=== PATIENT | male | born 1975 | race Caucasian/White ===

== ENCOUNTER 2017-08-01 13:35 | Emergency (ER) | payer OTHER ==
[~2017-08-01] VITALS: Ht 182.8 cm; Wt 117.9 kg
[2017-08-01] MEDS ORDERED: GABAPENTIN600 MG PO (13:44)
[2017-08-01] MEDS ORDERED: SEROQUEL400 M1 PO ×2 (13:45→13:48)
[2017-08-01] MEDS ORDERED: ZOLOFT50 MG PO (13:45)
[2017-08-01] MEDS ORDERED: ZESTRIL10 MG PO (13:45)
[2017-08-01] MEDS ORDERED: Motrin,Rufen800 MG PO (13:48)
[2017-08-01] MEDS ORDERED: AMOXICILLIN500 M2 PO (13:48)
[2017-08-01] MEDS ORDERED: FLONASE ALLERG9.9 ML NS (13:48)
== END 2017-08-01 14:10 | disposition home or self-care (01) ==
LOC: ED 13:35
DX: K04.7 Periapical abscess without sinus (principal); Z76.0 Encounter for issue of repeat prescription; Z79.899 Other long term (current) drug therapy

== ENCOUNTER 2017-10-06 11:58 | Emergency (ER) | payer OTHER ==
[~2017-10-06] VITALS: Ht 182.8 cm; Wt 106.6 kg
[~2017-10-06 11:58] MED LIST: AMOXICILLIN500 M2 PO; FLONASE ALLERG9.9 ML NS; GABAPENTIN600 MG PO; Motrin,Rufen800 MG PO; SEROQUEL400 M1 PO; ZESTRIL10 MG PO; ZOLOFT50 MG PO
[2017-10-06 12:28] LABS: BILIRUBIN NEGATIVE (NEGATIVE); BLOOD TRACE-INTACT (NEGATIVE); CLARITY SL CLOUDY (CLEAR); COLOR YELLOW (YELLOW); GLUCOSE NEGATIVE (NEGATIVE); KETONE TRACE (NEGATIVE); LEUKO ESTERASE NEGATIVE (NEGATIVE); NITRITE NEGATIVE (NEGATIVE); PH 5.5 (5.0-9.0)
[2017-10-06 12:29] LABS: BASO # 0.1 10*3/uL (0.0-0.1); BASO % 1.5 % (0.0-1.0); EOS # 0.1 10*3/uL (0.0-0.4); EOS % 0.8 % (1.0-4.0); HEMATOCRIT 44.6 % (42.0-52.0); HEMOGLOBIN 15.5 g/dl (14.0-18.0); LYMPH # 1.9 10*3/uL (1.3-4.4); LYMPH % 30.8 % (27.0-41.0); MEAN CELL VOLUME 88.1 fl (80.0-94.0); MEAN CORPUSCULAR HGB 30.6 pg (27.0-31.0); MEAN CORPUSCULAR HGB CONC 34.8 g/dl (33.0-37.0); MEAN PLATELET VOLUME 9.2 fl (9.6-12.3); MONO # 0.5 10*3/uL (0.1-1.0); MONO % 7.5 % (3.0-9.0); NEUT # 3.6 10*3/uL (2.3-7.9); NEUT % 59.2 % (47.0-73.0); PLATELET COUNT AUTOMATED 321 10*3/uL (130-400); RED BLOOD COUNT 5.06 10*6/uL (4.50-5.90); RED CELL DISTRI WIDTH 13.3 % (0-14.5); WHITE BLOOD COUNT 6.1 10*3/uL (4.8-10.8)
[2017-10-06 12:36] LABS: URINE AMPHETAMINES < 1000 (1000ng/ml); URINE BARBITURATES < 200 (200ng/ml); URINE BENZODIAZEPINES < 200 (200ng/ml); URINE CANNABINOIDS (THC) > 50 (50ng/ml); URINE COCAINE < 300 (300ng/ml); URINE METHADONE < 300 (300ng/ml); URINE OPIATES < 300 (300ng/ml)
[2017-10-06 12:37] LABS: URINE PHENCYCLIDINE < 25 (25ng/ml)
[2017-10-06 12:39] LABS: ALBUMIN 4.7 gm/dl (3.1-4.5); ALKALINE PHOSPHATASE 107 U/L (45-117); BUN 9 mg/dl (7-24); CHLORIDE 99 mmol/L (98-107); CREATININE 1.12 mg/dL (0.70-1.30); POTASSIUM 3.2 mmol/L (3.5-5.1); SGOT/AST 83 IU/L (3-35); SGPT/ALT 68 U/L (12-78); SODIUM 136 mmol/L (136-145); TOTAL PROTEIN 8.6 gm/dL (6.4-8.2)
[2017-10-06 12:55] LABS: BACTERIA 1+; MUCOUS 1+
[2017-10-06 12:56] LABS: FINE GRANULAR CAST TNTC
[2017-10-06] MEDS ORDERED: SEROQUEL400 M1 PO (13:41)
== END 2017-10-06 14:36 | disposition home or self-care (01) ==
LOC: ED 11:58
PROVIDERS: Nurse Practitioner Family
DX: F41.9 Anxiety disorder, unspecified (principal); F10.129 Alcohol abuse with intoxication, unspecified; R03.0 Elevated blood-pressure reading, without diagnosis of hypertension; M79.1 Myalgia; R11.0 Nausea; R25.1 Tremor, unspecified; Z76.0 Encounter for issue of repeat prescription; F17.200 Nicotine dependence, unspecified, uncomplicated; Z79.899 Other long term (current) drug therapy

== ENCOUNTER 2017-10-07 21:41 | Inpatient (IN) | payer OTHER ==
[~2017-10-07] VITALS: Ht 182.9 cm; Wt 98.5 kg
--- NOTE | ~2017-10-07 | CON ---
[place], [place] REPORT OF CONSULTATION NAME: CHRISTINA ZELAYA UNIT #: [id number] ROOM: [facility] DOCTOR: SOFI TOLLIVER MD BIRTHDATE: [birth year] DOS: 10/08/2017 REASON FOR CONSULTATION: Acute kidney injury. HISTORY OF PRESENT ILLNESS: A 41-year-old male with past history of alcohol abuse, hypertension, posttraumatic stress disorder. He was brought to the hospital, seems yesterday. He was confused and disoriented. He is having nausea and vomiting, muscle cramps, abdominal pain and back pain. Apparently, found at the gas station by staff acting strange. They called the police and he was strongly confused and brought to the hospital. The patient was felt to be intoxicated. Apparently, he was in the Emergency Room a day before for alcohol intoxication, muscle spasms, nausea, anxiety to being out of the Seroquel for a few days. He was prescribed Seroquel and sent home. At that time, his creatinine was 1.1. When he returned back to the hospital, his creatinine was over 5. He was highly intoxicated and admitted for further evaluation. He was started on IV fluids. A CK level was drawn and was over 4000. The patient did have some improvement in his creatinine with today's levels. He is urinating without difficulty. When I had seen him, he was on nasal cannula. He seems to be going into withdrawal symptoms. He has been given a number of doses of Ativan and is on a steady dose of Ativan as well. He, otherwise, is a poor historian. ALLERGIES: No known drug allergies. HOME MEDICATIONS: Included gabapentin, lisinopril, Seroquel, Zoloft. CURRENT MEDICATIONS: Reviewed on the chart. PAST MEDICAL HISTORY: 1. Hypertension. 2. Post-traumatic stress disorder. 3. Alcohol abuse. 4. History of hernia repair. 5. Depression. 6. Questionable chronic pain. FAMILY HISTORY: No reported history of chronic kidney disease, otherwise noncontributory. SOCIAL HISTORY: He has an extensive history of alcohol abuse. He does smoke and there is a history of illicit drugs. REVIEW OF SYSTEMS: As per HPI, otherwise, a 10-point review of systems was reviewed and was negative or somewhat limited. PHYSICAL EXAMINATION: VITAL SIGNS: Temperature 97.9, pulse 82, respiration rate 16, blood pressure 129/89. GENERAL: He is awake, alert, somewhat agitated. HEENT: Shows no JVD. Sclerae are anicteric. Mucous membranes appear dry. [place], [place] REPORT OF CONSULTATION NAME: CHRISTINA ZELAYA UNIT #: [id number] ROOM: [facility] DOCTOR: SOFI TOLLIVER MD BIRTHDATE: [birth year] Pharynx is clear. NECK: Supple. Trachea is midline. There is no neck lymphadenopathy or thyromegaly. LUNGS: Diminished breath sounds. There are no appreciable wheezes. No tactile fremitus. He is not using accessory muscles of respiration. HEART: S1, S2. No rub, thrill or gallop. ABDOMEN: Soft, nontender. There is organomegaly or rigidity, rebound or guarding. There is no CVA tenderness. EXTREMITIES: No edema. There is no lower extremity lymphadenopathy. Distal pulses are 2+. SKIN: Showed no overt rash. There is no petechia or purpura. Skin temperature is warm. NEUROLOGIC: He was awake, he was following commands. He was moving his extremities. He did appear to have some tremors noted and seems somewhat agitated. DIAGNOSTIC DATA: Hemoglobin 13.0, white count of 8.0, platelets of 185. CPK of 4540, BUN 35, creatinine 3.4, sodium 139, potassium 3.8, CO2 24, calcium 7.6, albumin of 3.7. TSH is 0.825. AST of 144, ALT of 60. Urine toxicity screen was positive for THC. IMPRESSION: 1. Acute kidney injury with a baseline creatinine that seems to be in the range of 1.1. The etiology may be related to prerenal factors as well as possible element of acute tubular necrosis. The patient has an elevated CK level, although it is not clear what it had been a few days ago. There may have been some element of rhabdomyolysis that may be resolving, contributing to his acute kidney injury and a possible acute tubular necrosis like picture. 2. History of alcohol abuse. 3. Likely delirium tremens. 4. Mild anemia. 5. History of hypertension. PLAN: 1. Continue IV fluids. 2. Continue to trend labs. Follow CK levels. Follow creatinine levels and replace electrolytes as needed. Check phosphorus level. 3. Dose medications for current creatinine clearance. 4. Avoid using NSAIDs. 5. If renal function does not improve, can check renal ultrasound. Currently, there is no need for renal replacement therapy. Thank you for this consultation. We will follow with you. [place], [place] REPORT OF CONSULTATION NAME: CHRISTINA ZELAYA UNIT #: [id number] ROOM: [facility] DOCTOR: SOFI TOLLIVER MD BIRTHDATE: [birth year] SOFI TOLLIVER MD CM:CONSTR:REPORT OF CONSULTATION 1339 10/09/17 0029 interface
--- NOTE | ~2017-10-07 | CON ---
[place], [place] REPORT OF CONSULTATION NAME: CHRISTINA ZELAYA UNIT #: [id number] ROOM: 410 DOCTOR: JASMYNE HOLGUIN MD BIRTHDATE: [birth year] DOS: 10/12/2017 CHIEF COMPLAINT: "Oh, I have been waiting to see my meds need adjusted." HISTORY OF PRESENT ILLNESS: This is a 41-year-old male who was admitted to ICU with disorientation and confusion. The patient had stumbled into a gas station and the staff there called 911 and he was brought to the Emergency Room by EMS. He was found to be very confused and unable to complete sentences and possibly under the influence. Since he has been hospitalized in the ICU, he has been found to be very manic or hypomanic, very sexually inappropriate and labile. The patient does admit to seeing Jese Lua at the [facility] and most recently has been prescribed Seroquel, but states that he has been taking it differently than what it has been ordered and he finds it much more effective if he takes throughout the day. He endorses significant mood lability as well as agitation and irritability. He notes that he could rip somebody's head off because he gets so angry, so easily. He also endorses lack of sleep, increased energy, grandiosity and other manic symptoms. MENTAL STATUS: He is alert and oriented. Mood does seem to be rather expansive and labile. He is very grandiose and pressured. There are no gross psychotic symptoms. Memory is intact. DIAGNOSIS: Bipolar type 1, mixed. PLAN: I will change his Seroquel from 400 mg a day to 200 mg 3 times a day. Discontinue Zoloft in lieu of Cymbalta 30 mg at bedtime as he endorses significant chronic pain issues. I will also increase Neurontin from 600 mg t.i.d. to 800 mg t.i.d. to further augment the mood stabilizers. As far as I am concerned, he may be discharged then when medically stable. JASMYNE HOLGUIN MD CM:CONSTR:REPORT OF CONSULTATION 1031 10/12/17 [id number] interface
[2017-10-07 21:45] VITALS: BP 164/108
[2017-10-07 22:38] LABS: BASO % 0.2 % (0.0-1.0); HEMATOCRIT 46.4 % (42.0-52.0); HEMOGLOBIN 16.2 g/dl (14.0-18.0); LYMPH # 0.8 10*3/uL (1.3-4.4); LYMPH % 7.8 % (27.0-41.0); MEAN CELL VOLUME 88.5 fl (80.0-94.0); MEAN CORPUSCULAR HGB 30.9 pg (27.0-31.0); MEAN CORPUSCULAR HGB CONC 34.9 g/dl (33.0-37.0); MONO # 0.5 10*3/uL (0.1-1.0); MONO % 4.5 % (3.0-9.0); NEUT % 87.3 % (47.0-73.0); PLATELET COUNT AUTOMATED 263 10*3/uL (130-400); RED BLOOD COUNT 5.24 10*6/uL (4.50-5.90); RED CELL DISTRI WIDTH 13.2 % (0-14.5); WHITE BLOOD COUNT 10.3 10*3/uL (4.8-10.8)
[2017-10-07 22:47] LABS: INTERNATIONAL NORM RATIO 1.1 (2.0-3.5)
[2017-10-07 22:54] LABS: ALBUMIN 5.2 gm/dl (3.1-4.5); ALKALINE PHOSPHATASE 118 U/L (45-117); CHLORIDE 95 mmol/L (98-107); CREATININE 5.03 mg/dL (0.70-1.30); LIPASE 359 U/L (73-393); POTASSIUM 3.9 mmol/L (3.5-5.1); SGOT/AST 138 IU/L (3-35); SGPT/ALT 77 U/L (12-78); SODIUM 133 mmol/L (136-145); TOTAL PROTEIN 9.7 gm/dL (6.4-8.2)
[2017-10-07 22:55] LABS: BUN 33 mg/dl (7-24); ETHYL ALCOHOL < 3.0 mg/dl (<3); TROPONIN I < 0.015 ng/ml (<0.045)
[2017-10-07 23:05] VITALS: BP 76/42
[2017-10-07 23:30] VITALS: BP 85/47
[2017-10-07 23:43] VITALS: BP 92/48
[2017-10-07 23:47] VITALS: BP 94/56
[2017-10-07 23:58] VITALS: BP 90/60
[2017-10-08] VITALS (12 sets, daily range): BP systolic 91–154; BP diastolic 37–91
[2017-10-08 02:29] LABS: BILIRUBIN 2+ (NEGATIVE); BLOOD 3+ (NEGATIVE); CLARITY SL CLOUDY (CLEAR); COLOR YELLOW (YELLOW); GLUCOSE NEGATIVE (NEGATIVE); KETONE 1+ (NEGATIVE); LEUKO ESTERASE NEGATIVE (NEGATIVE); NITRITE POSITIVE (NEGATIVE); PH 5.5 (5.0-9.0); SPECIFIC GRAVITY >= 1.030 (1.005-1.030)
[2017-10-08 02:38] LABS: URINE AMPHETAMINES < 1000 (1000ng/ml); URINE BARBITURATES < 200 (200ng/ml); URINE BENZODIAZEPINES < 200 (200ng/ml); URINE CANNABINOIDS (THC) > 50 (50ng/ml); URINE COCAINE < 300 (300ng/ml); URINE METHADONE < 300 (300ng/ml); URINE OPIATES < 300 (300ng/ml)
[2017-10-08 02:41] LABS: BACTERIA 3+; FINE GRANULAR CAST TNTC; MUCOUS 3+
[2017-10-08 02:43] LABS: URINE PHENCYCLIDINE < 25 (25ng/ml)
[2017-10-08 06:06] LABS: BASO % 0.1 % (0.0-1.0); LYMPH # 1.4 10*3/uL (1.3-4.4); LYMPH % 17.9 % (27.0-41.0); MEAN CORPUSCULAR HGB 31.2 pg (27.0-31.0); MEAN CORPUSCULAR HGB CONC 33.9 g/dl (33.0-37.0); MEAN PLATELET VOLUME 10.1 fl (9.6-12.3); MONO # 0.7 10*3/uL (0.1-1.0); MONO % 8.6 % (3.0-9.0); NEUT # 5.9 10*3/uL (2.3-7.9); NEUT % 73.2 % (47.0-73.0); PLATELET COUNT AUTOMATED 185 10*3/uL (130-400); RED BLOOD COUNT 4.17 10*6/uL (4.50-5.90); RED CELL DISTRI WIDTH 13.5 % (0-14.5)
[2017-10-08 06:07] LABS: ALBUMIN 3.7 gm/dl (3.1-4.5); CREATININE 3.42 mg/dL (0.70-1.30); POTASSIUM 3.8 mmol/L (3.5-5.1); TOTAL PROTEIN 7.1 gm/dL (6.4-8.2)
[2017-10-08 06:08] LABS: HEMATOCRIT 38.3 % (42.0-52.0); MEAN CELL VOLUME 91.8 fl (80.0-94.0)
[2017-10-08 06:20] LABS: THYROID STIM HORMONE (HS) 0.825 uIU/ml (0.358-4.75)
[2017-10-08 07:28] LABS: VITAMIN D, 25-HYDROXY 41.9 ng/mL (30-100)
[2017-10-08 15:08] LABS: CREATININE 2.14 mg/dL (0.70-1.30); POTASSIUM 3.7 mmol/L (3.5-5.1)
[2017-10-08 15:13] LABS: PHOSPHOROUS 1.5 mg/dL (2.5-4.9)
[2017-10-09 04:24] VITALS: BP 126/73
[2017-10-09 05:55] LABS: BASO % 0.5 % (0.0-1.0); EOS # 0.1 10*3/uL (0.0-0.4); EOS % 2.4 % (1.0-4.0); HEMATOCRIT 38.4 % (42.0-52.0); LYMPH # 1.8 10*3/uL (1.3-4.4); LYMPH % 31.1 % (27.0-41.0); MEAN CELL VOLUME 90.4 fl (80.0-94.0); MEAN CORPUSCULAR HGB 30.6 pg (27.0-31.0); MEAN CORPUSCULAR HGB CONC 33.9 g/dl (33.0-37.0); MEAN PLATELET VOLUME 10.1 fl (9.6-12.3); MONO # 0.4 10*3/uL (0.1-1.0); MONO % 6.1 % (3.0-9.0); NEUT # 3.4 10*3/uL (2.3-7.9); NEUT % 59.7 % (47.0-73.0); PLATELET COUNT AUTOMATED 162 10*3/uL (130-400); RED BLOOD COUNT 4.25 10*6/uL (4.50-5.90); RED CELL DISTRI WIDTH 13.2 % (0-14.5); WHITE BLOOD COUNT 5.8 10*3/uL (4.8-10.8)
[2017-10-09 06:07] LABS: BUN 33 mg/dl (7-24); CHLORIDE 108 mmol/L (98-107); CREATININE 1.39 mg/dL (0.70-1.30); POTASSIUM 3.9 mmol/L (3.5-5.1); SODIUM 139 mmol/L (136-145)
[2017-10-09 08:00] VITALS: BP 145/91
[2017-10-09 12:00] VITALS: BP 152/82
[2017-10-09 16:00] VITALS: BP 147/83
[2017-10-09 20:00] VITALS: BP 160/97
[2017-10-10 00:07] VITALS: BP 160/92; BP 160/97
[2017-10-10 04:00] VITALS: BP 168/90
[2017-10-10 06:01] LABS: BASO % 0.8 % (0.0-1.0); EOS # 0.2 10*3/uL (0.0-0.4); EOS % 4.4 % (1.0-4.0); HEMATOCRIT 38.1 % (42.0-52.0); HEMOGLOBIN 13.1 g/dl (14.0-18.0); LYMPH # 1.8 10*3/uL (1.3-4.4); LYMPH % 34.2 % (27.0-41.0); MEAN CELL VOLUME 89.9 fl (80.0-94.0); MEAN CORPUSCULAR HGB 30.9 pg (27.0-31.0); MEAN CORPUSCULAR HGB CONC 34.4 g/dl (33.0-37.0); MEAN PLATELET VOLUME 10.1 fl (9.6-12.3); MONO # 0.3 10*3/uL (0.1-1.0); MONO % 6.5 % (3.0-9.0); NEUT # 2.8 10*3/uL (2.3-7.9); NEUT % 53.9 % (47.0-73.0); PLATELET COUNT AUTOMATED 159 10*3/uL (130-400); RED BLOOD COUNT 4.24 10*6/uL (4.50-5.90); RED CELL DISTRI WIDTH 12.9 % (0-14.5); WHITE BLOOD COUNT 5.2 10*3/uL (4.8-10.8)
[2017-10-10 06:29] LABS: ALBUMIN 3.7 gm/dl (3.1-4.5); ALKALINE PHOSPHATASE 75 U/L (45-117); BUN 25 mg/dl (7-24); CHLORIDE 107 mmol/L (98-107); CREATININE 1.11 mg/dL (0.70-1.30); PHOSPHOROUS 2.9 mg/dL (2.5-4.9); POTASSIUM 3.5 mmol/L (3.5-5.1); SGOT/AST 95 IU/L (3-35); SGPT/ALT 60 U/L (12-78); SODIUM 140 mmol/L (136-145); TOTAL PROTEIN 7.3 gm/dL (6.4-8.2)
[2017-10-10 08:00] VITALS: BP 152/95
[2017-10-10 12:00] VITALS: BP 143/98
[2017-10-11] VITALS: BP 144/92
[2017-10-11 04:00] VITALS: BP 130/90
[2017-10-11 06:09] LABS: ALBUMIN 3.8 gm/dl (3.1-4.5); ALKALINE PHOSPHATASE 81 U/L (45-117); BUN 27 mg/dl (7-24); CHLORIDE 108 mmol/L (98-107); CREATININE 1.11 mg/dL (0.70-1.30); POTASSIUM 4.2 mmol/L (3.5-5.1); SGOT/AST 59 IU/L (3-35); SGPT/ALT 59 U/L (12-78); SODIUM 140 mmol/L (136-145); TOTAL PROTEIN 7.6 gm/dL (6.4-8.2)
[2017-10-11 08:00] VITALS: BP 150/90
[2017-10-11 12:00] VITALS: BP 147/91
[2017-10-11 16:00] VITALS: BP 132/61
[2017-10-11 20:00] VITALS: BP 124/77
[2017-10-12] VITALS: BP 136/90
[2017-10-12 04:00] VITALS: BP 130/80
[2017-10-12 05:19] LABS: ALBUMIN 3.9 gm/dl (3.1-4.5); BUN 29 mg/dl (7-24); CHLORIDE 106 mmol/L (98-107); CREATININE 0.97 mg/dL (0.70-1.30); POTASSIUM 4.1 mmol/L (3.5-5.1); SGOT/AST 38 IU/L (3-35); SGPT/ALT 58 U/L (12-78); SODIUM 141 mmol/L (136-145); TOTAL PROTEIN 7.6 gm/dL (6.4-8.2)
[2017-10-12 05:21] LABS: ALKALINE PHOSPHATASE 76 U/L (45-117); CPK 384 U/L (39-308)
[2017-10-12 08:00] VITALS: BP 118/85
[2017-10-12 12:00] VITALS: BP 102/77
[2017-10-12 16:00] VITALS: BP 124/91
[2017-10-12 20:00] VITALS: BP 147/80
[2017-10-13] VITALS: BP 119/75
[2017-10-13 08:00] VITALS: BP 118/76
[2017-10-13] MEDS ORDERED: DULOXETINE HCL30 MG PO (09:28)
[2017-10-13] MEDS ORDERED: QUETIAPINE FUM100 M3 PO (09:28)
[2017-10-13] MEDS ORDERED: GABAPENTIN800 MG PO (09:30)
== END 2017-10-13 12:54 | disposition home or self-care (01) | DRG 682 ==
LOC: ED 21:41 → EDHOLD 23:14 → ICCU 23:14 → 4E 23:41 → ICCU 10-08 02:18 → 5E 10-11 16:32 → ICCU 10-11 16:33 → 4E 10-12 10:44
PROVIDERS: Emergency Medicine Emergency Medical Services; Internal Medicine; Internal Medicine Hospice and Palliative Medicine
DX: N17.0 Acute kidney failure with tubular necrosis (principal); G93.41 Metabolic encephalopathy; I95.9 Hypotension, unspecified; E87.1 Hypo-osmolality and hyponatremia; E87.2 Acidosis; E87.8 Other disorders of electrolyte and fluid balance, not elsewhere classified; E83.39 Other disorders of phosphorus metabolism; E83.42 Hypomagnesemia; F10.951 Alcohol use, unspecified with alcohol-induced psychotic disorder with hallucinations; M62.82 Rhabdomyolysis; R17 Unspecified jaundice; F31.60 Bipolar disorder, current episode mixed, unspecified; R74.0 Nonspecific elevation of levels of transaminase and lactic acid dehydrogenase [LDH]; R00.0 Tachycardia, unspecified; R73.9 Hyperglycemia, unspecified; F12.10 Cannabis abuse, uncomplicated; Y90.9 Presence of alcohol in blood, level not specified; F43.10 Post-traumatic stress disorder, unspecified; I10 Essential (primary) hypertension; F39 Unspecified mood [affective] disorder; G89.29 Other chronic pain; D64.9 Anemia, unspecified; Z72.0 Tobacco use; Z71.6 Tobacco abuse counseling; Z79.899 Other long term (current) drug therapy; Z83.3 Family history of diabetes mellitus; Z84.89 Family history of other specified conditions